=== PATIENT | male | born 1990 | race Caucasian/White ===

== ENCOUNTER 2021-06-18 06:07 | Emergency (ER) | payer MEDICARE, OTHER ==
[2021-06-18] MEDS ORDERED: ACETAMINOPHEN TAB 325 MG TAB PO STA (06:23)
[2021-06-18] MEDS ORDERED: IBUPROFEN 600 MG TAB PO STA (06:23)
--- NOTE | 2021-06-18 06:50 | XR ---
EXAMINATION TYPE: XR chest 2V DATE OF EXAM: 06/18/2021 COMPARISON: NONE HISTORY: Cough and fever TECHNIQUE: 2 views FINDINGS: Heart and mediastinum are normal. There is small infiltrate lateral left lung base. There a re no hilar masses. Bony thorax is intact. Pulmonary vascularity is normal. IMPRESSION: Small left lower lobe pneumonia. Normal heart.
--- NOTE | 2021-06-18 06:55 | ED ---
Fever HPI - General Chief Complaint: Fever Stated Complaint: cough, fever Time Seen by Provider: 06/18/21 06:24 Source: patient, EMS, RN notes reviewed Mode of arrival: EMS - History of Present Illness Initial Comments: Patient is a 30-year-old male that presents to emergency department complaining of a fever for the past week. He alsohad a sore throat for the same amount of t joy. He denied being tested for Covid recently or coming into contact with any sick contacts. Patient denied taking Tylenol Motrin prior to arrival. Patient was otherwise well-appearing in no apparent distress or pain. He denied any chest pain shortness of breath headache nausea vomiting diarrhea constipation fever fatigue chills. - Related Data Home Medications Medication Instructions Recorded Confirmed No Known Home Medications 06/18/21 06/18/21 Allergies Allergy/AdvReac Type Severity Reaction Status Date / Time Penicillins Allergy Unknown Verified 06/18/21 07:27 Childhood Review of Systems ROS Statement: Those systems with pertinent positive or pertinent negative responses have been documented in the HPI. ROS Other: All systems not noted in ROS Statement are negative. Past Medical History Past Medical History: No Reported History History of Any Multi-Drug Resistant Organisms: None Reported Past Surgical History: Ear Surgery Additional Past Surgical History / Comment(s): abdominal surgery Past Psychological History: No Psychological Hx Reported Smoking Status: Never smoker Past Alcohol Use History: None Reported Past Drug Use History: None Reported General Exam General appearance: alert, in no apparent distress, obese Head exam: Present: atraumatic, normocephalic, normal inspection Eye exam: Present: normal appearance, PERRL, EOMI. Absent: scleral icterus, conjunctival injection, periorbital swelling ENT exam: Present: normal exam, mucous membranes moist, TM's normal bilaterally. Absent: normal oropharynx (Erythematous, tonsillar exudate.) Neck exam: Present: normal inspection. Absent: tenderness, lymphadenopathy Respiratory exam: Present: normal lung sounds bilaterally. Absent: respiratory distress, wheezes, rales, rhonchi, stridor Cardiovascular Exam: Present: regular rate, normal rhythm, normal heart sounds. Absent: systolic murmur, diastolic murmur, rubs, gallop, clicks Extremities exam: Present: normal inspection, full ROM, normal capillary refill. Absent: tenderness, pedal edema, joint swelling, calf tenderness Neurological exam: Present: alert, oriented X3 Psychiatric exam: Present: normal affect, normal mood Skin exam: Present: warm, dry, intact, normal color. Absent: rash Course Vital Signs 06/18/21 06/18/21 06:12 07:03 Temperature 103.1 F H Pulse Rate 125 H 110 H Respiratory 20 18 Rate Blood Pressure 125/85 132/77 O2 Sat by Pulse 96 96 Oximetry Medical Decision Making - Medical Decision Making 30-year-old male with a one-week history of fever and sore throat. Covid test, strep test, heterophile, chest x-ray 650 mg of Tylenol and 600 mg of Motrin ordered for fever of 103.1. Strep test negative, Covid test positive. Patient wishes to undergo monoclonal antibiotic infusion. He does meet criteria. - Lab Data Lab Results 06/18/21 06/18/21 Range/Units 06:36 06:36 Coronavirus (PCR) Detected A (Not Detectd) Group A Strep Rapid Negative (Negative) - Radiology Data Radiology results: report reviewed, image reviewed Chest x-ray: Small left lower lobe pneumonia. Normal heart. Disposition Clinical Impression: COVID, Fever Disposition: HOME SELF-CARE Condition: Stable Instructions (If sedation given, give patient instructions): Fever in Adults (ED) Additional Instructions: Please return to the Emergency Department if symptoms worsen or any other concerns. Follow-up with primary care 1-2 days. Take Tylenol and Motrin alternating every 3 hours for fever control. Increase oral fluids. Plan rest. Is patient prescribed a controlled substance at d/c from ED?: No Referrals: Juana Giang MD [Primary Care Provider] - 1-2 days Time of Disposition: 07:47
[2021-06-18] MEDS ORDERED: SODIUM CHLORIDE 0.9% 50 ML IVPB ONE (08:30)
[2021-06-18] MEDS ORDERED: CASIRIVIMAB (REGN10933) (EUA) 600 MG, IMDEVIMAB (REGN10987) (EUA) 600 MG in SODIUM CHLO... IVPB ONE (08:30)
[2021-06-18 10:31] VITALS: BP 140/72; PULSE 94; RESP 19; TEMP 99.4
== END 2021-06-18 10:31 | disposition home or self-care (01) ==
LOC: EC 06:07
DX: U07.1 COVID-19 (principal); Z88.0 Allergy status to penicillin
CPT/HCPCS: 36415; 71046; 87081; 87430; 87635; 99284